=== PATIENT | female | born 1995 | race Caucasian/White ===

== ENCOUNTER 2019-05-02 20:00 | Inpatient (IN) | payer OTHER ==
[~2019-05-02] VITALS: Ht 165.1 cm; Wt 110.4 kg
[~2019-05-02 20:00] MED LIST: ALBU8.5H8 INH; PRENAT PO
[2019-05-02] MEDS ORDERED: LACTATED RINGER'S 1,000 ML IV PRN (20:17)
[2019-05-02 20:23] VITALS: Ht 165.1 cm; Wt 110.4 kg
[2019-05-02] MEDS ORDERED: LIDOCAINE 1% (MPF) 30 ML INJ INJ PRN (20:30)
[2019-05-02] MEDS ORDERED: CARBOPROST 250 MCG INJ IM PRN (20:30)
[2019-05-02] MEDS ORDERED: OXYTOCIN 30 UNITS/LR 500 ML IV SCH ×2 (20:30)
[2019-05-02] MEDS ORDERED: BUTORPHANOL 2 MG INJ IV PRN (20:30)
[2019-05-02] MEDS ORDERED: MISOPROSTOL 200 MCG TAB PR PRN (20:30)
[2019-05-02] MEDS ORDERED: OXYTOCIN 30 UNITS/LR 500 ML IV PRN (20:30)
[2019-05-02] MEDS ORDERED: METHYLERGONOVINE 0.2 MG INJ IM PRN (20:30)
[2019-05-02 20:51] VITALS: BP 131/85; PULSE 92; RESP 18
[2019-05-02] MEDS: LACTATED RINGER'S 1,000 ML IV SCH (21:06)
[2019-05-02] MEDS: MISOPROSTOL 50 MCG CAPSULE PO SCH (23:19)
[2019-05-03] MEDS ORDERED: CLINDAMYCIN 900 MG/D5W (PMX) 50 ML IVPB SCH
[2019-05-03] MEDS ORDERED: CLINDAMYCIN 900 MG INJ IVPB SCH
[2019-05-03] MEDS: MISOPROSTOL 50 MCG CAPSULE PO SCH (03:00)
[2019-05-03] MEDS: LACTATED RINGER'S 1,000 ML IV SCH (04:17)
[2019-05-03] MEDS ORDERED: IBUPROFEN 600 MG TAB PO STA (04:35)
--- NOTE | 2019-05-03 05:02 | HP ---
Date/Time of Note Date/Time of Note DATE: 05/03/19 TIME: 04:29 OB - History Hx of Present Free Text/Dictation 23y.o YOGESH 04/27/19 here for IOL for postdate. Initial VE 12/24/-2 EFW 4042 gm male Due to the EFW is high ,possibility of shoulder dystocia went over with patient in detail and basic written info was also given. patient decided to try vaginal . had adequate care which was initiated at 13weeks. known to have asthma,using albuterol inhaler, last usage was on 05/01/19 GBS status positive,allergic to penicillin, clindamycin will be given. admitted for induction of labor,using cytotec. Chief Complaint: IOL Estimated Due Date: Apr 27, 2019 : 4 Para: 1 Spontaneous : 1 Therapeutic : 1 Care: Good Care Ultrasounds: Normal mid trimester US Obstetrical Complications: None Medical Complications: None Past Family/Social History * Past Medical, Surgical, Family and Obstetric Histories reviewed from chart. Blood Type: A- Rubella: immune RPR/VDRL: Negative GBS Status: Positive HBsAG: Negative OB Admission Exam Vital Signs Vital Signs Vital Signs Date Temp Pulse Resp B/P (MAP) Pulse Ox O2 O2 Flow FiO2 Time Delivery Rate 05/02/19 98.1 92 18 131/85 Room Air 20:51 (100) Physical Exam HEENT: WNL Heart: Rhythm Normal Lungs: Clear, Equal Abdomen: WNL Extremities: Normal Reflexes: Normal Cervical Dilatation: 2cm Effacement: Other (20%) Station: -2 Membranes: Intact Amniotic Fluid: Unevaluable Heart Rate: 140's Accelerations: Accelerations Present Decelerations: No Decelerations Varibility: Moderate Contractions on Admission: None Last 72 hours Lab Results CBC & BMP 05/02/19 21:00 OB Assessment/Plan Reason for admission: induction of labor Other Assessment: IUP 40w5d Plan: Induction Induction Method: per Misoprostol Protocol ANTOINETTE INMAN MD May 03, 2019 05:02
--- NOTE | 2019-05-03 05:10 | LDN ---
Date/Time of Note Date/Time of Note DATE: 05/03/19 TIME: 05:08 Delivery Summary of normal male Weeks of Gestation 40w6d Placenta Delivered: Spontaneously, Intact & Complete Meconium: none Episiotomy: No Perineal laceration: 0 Anesthesia type: None Estimated blood loss: 200 Sponge & Needle done & correct: Yes All needle counts correct: Yes Any foreign bodies felt in the: No Infant Delivery Information Sex Infant Sex: male Apgars 1 Minute: 9 5 Minute: 9 Suctioning Nose & mouth suctioned at ace: Yes Delee suction performed: Yes Umbilical Cord Umbilical cord with: 3 Vessels Cord presentations: nuchal cord Nuchal cord present X: 1 Cord Blood was obtained: Yes ANTOINETTE INMAN MD May 03, 2019 05:10
[2019-05-03] MEDS ORDERED: ALBUTEROL HFA 8 GM INHALER INH PRN (05:30)
[2019-05-03 06:10] VITALS: BP 122/70; PULSE 78; RESP 18
[2019-05-03] MEDS: LACTATED RINGER'S 1,000 ML IV* SCH ×2 (06:13→09:43)
[2019-05-03] MEDS ORDERED: BENZOCAINE 20% 56 ML SPRAY TOP PRN (06:30)
[2019-05-03] MEDS ORDERED: OXYCODONE/ASPIRIN (4.88/325) TAB PO PRN ×2 (06:30)
[2019-05-03] MEDS ORDERED: ZOLPIDEM 5 MG TAB PO PRN (06:30)
[2019-05-03] MEDS ORDERED: MISOPROSTOL 200 MCG TAB PR PRN (06:30)
[2019-05-03] MEDS ORDERED: OXYTOCIN 30 UNITS/LR 500 ML IV PRN (06:30)
[2019-05-03] MEDS ORDERED: CARBOPROST 250 MCG INJ IM PRN (06:30)
[2019-05-03] MEDS ORDERED: METHYLERGONOVINE 0.2 MG INJ IM PRN (06:30)
[2019-05-03] MEDS ORDERED: WITCH HAZEL/GLYCERIN PAD PR PRN (06:30)
[2019-05-03] MEDS ORDERED: LANOLIN HPA 1 PKT TOP PRN (06:30)
[2019-05-03 08:00] VITALS: BP 109/59; PULSE 73; RESP 18
[2019-05-03] MEDS: SENNA/DOCUSATE NA (8.6MG/50MG) TAB PO SCH ×2 (09:40→21:00)
[2019-05-03 12:00] VITALS: BP 108/70; PULSE 75; RESP 18
[2019-05-03] MEDS: IBUPROFEN 600 MG TAB PO SCH ×3 (12:20→23:47)
[2019-05-03 16:00] VITALS: BP 115/68; PULSE 77; RESP 18
[2019-05-03 20:00] VITALS: BP 106/83; PULSE 82; RESP 17
[2019-05-04 03:50] VITALS: BP 116/61; PULSE 83; RESP 19
[2019-05-04] MEDS: IBUPROFEN 600 MG TAB PO SCH ×3 (05:36→17:20)
[2019-05-04 08:00] VITALS: BP 115/78; PULSE 89; RESP 18
[2019-05-04] MEDS: SENNA/DOCUSATE NA (8.6MG/50MG) TAB PO SCH ×2 (08:38→21:12)
--- NOTE | 2019-05-04 14:39 | DS ---
Date/Time of Note Date/Time of Note DATE: 05/04/19 TIME: 14:38 Obstetrical Discharge Record Final Diagnosis Final Diagnosis: Term delivered Vaginal Delivery Obstetrical Delivery: Spontaneous Complications Augmentation: Yes Induction: Yes Rupture of Membranes: No Condition on Discharge Physical Assessment Voiding: Yes Bowel Movement: Yes Breast: Soft, non-tender, Filling Fundus: Firm Abdomen and Incision: soft, not tender Calf Tenderness: No Patient Condition: Good VERO WATTS MD May 04, 2019 14:39
[2019-05-04 16:25] VITALS: BP 109/83; PULSE 80; RESP 18
[2019-05-04 20:00] VITALS: BP 120/79; PULSE 83; RESP 18
[2019-05-05] MEDS: IBUPROFEN 600 MG TAB PO SCH ×2 (00:06→05:32)
[2019-05-05 03:40] VITALS: BP 104/60; PULSE 80
[2019-05-05 08:00] VITALS: BP 107/71; PULSE 87; RESP 18
[2019-05-05] MEDS: SENNA/DOCUSATE NA (8.6MG/50MG) TAB PO SCH (09:00)
[2019-05-05] MEDS ORDERED: DIPHTH/TET/ACEL PERTUSS (ADULT) 0.5 ML VIAL IM* ONE (09:00)
--- NOTE | 2019-05-06 12:28 | DELSUM ---
Delivery Summary A-C Datetime Report Generated by CPN: 05/06/2019 12:27 DELIVERY PERSONNEL Controlled Area Checker: Aliyah Pereira MATERNAL INFORMATION Delivery Anesthesia: None Medications in Delivery: OXYTOCIN 30 UNITS IN LR Delivery QBL (ml): 208 Placenta Cultured: No Maternal Complications: None LABOR SUMMARY EDC: 04/27/2019 00:00 No. Babies in Womb: 1 Attempted: No Labor Anesthesia: None LABOR INFORMATION Reason for Induction: Postterm Onset of Labor: 05/01/2019 21:00 Complete Dilatation: 05/03/2019 03:45 Cervical Ripening Agents: Cytotec @ 50 mcg PO Group B Beta Strep: Positive Antibiotics # of Doses: CLINDAMYCIN X1 Antibiotics Time of Last Dose: 05/02/2019 23:32 Steroids Given: None Reason Steroids Not Administered: Not Applicable MEMBRANES Membranes Rupture Method: Spontaneous Rupture of Membranes: 05/03/2019 02:52 Length of Rupture (hr): 1.12 Amniotic Fluid Color: Clear Amniotic Fluid Amount: Small Amniotic Fluid Odor: None STAGES OF LABOR Stage 1 hr: 30 Stage 1 min: 45 Stage 2 hr: 0 Stage 2 min: 14 Stage 3 hr: 0 Stage 3 min: 4 Total Time in Labor hr: 31 Total Time in Labor min: 3 VAGINAL DELIVERY Episiotomy: None Laceration Extension: N/A Laceration Type: None Laceration Repair: Not Applicable Initial Vag Sponge Count: 10 Final Vag Sponge Count: 10 Initial Vag Sharps Count: 1 Final Vag Sharps Count: 1 Sponge Count Correct: Yes Sharps Count Correct: Yes BABY A INFORMATION Infant Delivery Date/Time: 05/03/2019 03:59 Method of Delivery: Vaginal Born in Route : No : N/A Forceps: N/A Vacuum Extraction: N/A Shoulder Dystocia : N/A SHOULDER DYSTOCIA BABY A Infant Delivery Date/Time: 05/03/2019 03:59 PRESENTATION/POSITION BABY A Presentation: Cephalic Cephalic Presentation: Vertex Vertex Position: Left Occipital Anterior Breech Presentation: N/A PLACENTA INFORMATION BABY A Placenta Delivery Time : 05/03/2019 04:03 Placenta Method of Delivery: Expressed Placenta Status: Delivered SCORES BABY A Heart Rate 1 min: >100 bpm Resp Effort 1 min: Good Cry Reflex Irritability 1 min: Cough/Sneeze/Pulls Away Muscle Tone 1 min: Active Motion Color 1 min: Body [place], Extremit Blue Resuscitation Effort 1 min: Tactile Stimulation SCORE 1 MIN: 9 Heart Rate 5 min: >100 bpm Resp Effort 5 min: Good Cry Reflex Irritability 5 min: Cough/Sneeze/Pulls Away Muscle Tone 5 min: Active Motion Color 5 min: Body [place], Extremit Blue Resuscitation Effort 5 min: N/A SCORE 5 MIN: 9 INFANT INFORMATION BABY A Gestational Age at Delivery: 40.6 Gestational Status: Full Term- 39- 40.6 Weeks Infant Outcome : Liveborn, with signs of life Infant Condition : Stable Sex: Male IDENTIFICATION/MEDS BABY A ID Band Number: [id number] ID Band Location: Right Leg; Left Arm Sensor Applied: Yes Sensor Number: [id number] Sensor Location : Cord Clamp Vitamin K Given : Not Given Erythromycin Given: Not Given WEIGHT/LENGTH BABY A Birthweight (gm): 3630 Weight (lb): 8 Infant Weight (oz): 0 Infant Length (in): 20.50 Length (cm): 52.07 CORD INFORMATION BABY A No. Cord Vessels: 3 Nuchal Cord : Around Neck x1, Loose Cord Blood Taken: Yes Banking/Donate Info: n/a Infant Suction: Mouth; Nose ASSESSMENT BABY A Infant Complications: None Physical Findings at Delivery: Molding of the Head; Bruising Physical Findings- Other: bruising around the eyes due to rapid decent Infant Respirations: Appears Normal Mortarman/ALS Called : No Infant Care By: ramon taylor RN Transferred To: Remains with Mother
== END 2019-05-05 12:26 | disposition home or self-care (01) | DRG 807 ==
LOC: EEVIPCON 20:00 → L-D 20:09 → PP1 05-03 05:42
PROVIDERS: ADMIT Specialist; ATTEND Specialist
PROC: 10E0XZZ Delivery of Products of Conception, External Approach (ICD-10-PCS; principal; 2019-05-03)
PROC: 3E033VJ Introduction of Other Hormone into Peripheral Vein, Percutaneous Approach (ICD-10-PCS; 2019-05-03)
DX: O48.0 Post-term pregnancy (principal); Z37.0 Single live birth; Z3A.40 40 weeks gestation of pregnancy
CPT/HCPCS: 76815; 85025; 85610; 85730; 86592; 86850; 86900; 86901; 87340; J2590; J7120